=== PATIENT | male | born 1955 | race Caucasian/White ===

== ENCOUNTER 2016-08-27 07:15 | Day surgery (SDC) | payer OTHER ==
[~2016-08-27] VITALS: Ht 172.7 cm; Wt 102.1 kg
[~2016-08-27 07:15] MED LIST: ACIPHEX20 MG PO; AMLODIPINE BESY10 MG PO; AMLODIPINE BESYL5 MG PO; ASPIR-LOW81 MG PO; ASPIRIN325 MG PO; ASPIRIN81 M1; AUGMENTIN875 MG PO; BACTRIM,SEPT1 TABLET PO; BALM; BUPROBAN150 MG PO; BUPROPION XL150 MG PO; CALCITRIOL0.25 MCG PO; CARAFATE1 GM PO; CARVEDILOL12.5 MG PO; CARVEDILOL25 MG PO; CEFADROXIL500 MG PO; CEFUROXIME500 MG PO; CLARITIN10 M3 PO; CLARITIN10 MG PO; CLINDAMYCIN HC300 MG PO; CLONIDINE HCL0.2 MG PO; CLOPIDOGREL75 MG PO; COREG12.5 M1 PO; COREG25 M1 PO; DOXAZOSIN MESYLA1 MG PO; DULERA 200 MCG/13 GM IH; ERGOCALCIF50000 UNIT PO; FISH OIL CONC1 EACH PO; FLOMAX0.4 MG PO; FLOVENT DISKUS1 DIS2 IH; FUROSEMIDE20 MG PO; FUROSEMIDE40 MG PO; FUROSEMIDE80 MG PO; HUMALOG100 UNIT/1 SC; HUMALOG100 UNIT/2 SC; IMDUR30 MG PO; IMDUR60 MG PO; ISOSORBIDE MONO30 MG PO; K-DUR20 MEQ PO; KLOR-CON 1010 ME1 PO; LANTUS 10100 UNITS/ SC; LANTUS 3 M100 UNITS1 SC; LANTUS100 UNIT/1 SC; LASIX40 MG PO; LEVEMIR FL100 UNIT/1 SC; LEVEMIR FL100 UNITS/ SC; LEVOFLOXACIN500 MG PO; LISINOPRIL10 MG PO; LISINOPRIL20 MG PO; LISINOPRIL40 MG PO; LITE COAT ASPI325 M1 PO; LORATADINE10 M2 PO; LORAZEPAM0.5 MG PO; MAGNESIUM200 MG PO; MULTI VITAMIN1 EACH PO; MULTIVITAMIN1 EAC1 PO; NEXIUM40 MG; NEXIUM40 MG PO; NICOTINE PATCH1 EAC1 TD; NIFEDIPINE ER30 MG PO; NITROSTAT0.4 MG SL; NORTRIPTYLINE H75 MG PO; NOVOLIN,HU100 UNITS/ SQ; NOVOLOG MI100 UNIT/4 SC; NOVOLOG100 UNIT/1; OMEPRAZOLE40 M1 PO; ONE DAILY MULT1 EACH PO; ONE DAILY1 EAC3 PO; PANTOPRAZOLE SO40 MG PO; PAXIL20 MG PO; PEPCID20 MG PO; PLAVIX75 MG PO; PRILOSEC OTC20 MG PO; PRILOSEC40 MG PO; PROMETHAZINE-C120 ML PO; PROSCAR5 MG PO; RABEPRAZOLE SOD20 MG PO; ROCALTROL0.25 MCG PO; SENNA-TIME S T1 EACH PO; SSD25GM TP; SUCRALFATE1 GM/10 ML PO; TANZEUM30 MG/0.5 SC; TORSEMIDE100 MG PO; TOUJEO SOL300 UNIT/1 SC; TYLENOL REGULA325 MG PO; VELTASSA25.2 GM PO; VICTOZA 2-0.6 MG/0.1 SC; VITAMIN C1000 MG PO; VITAMIN D1000 INTUN; VITAMIN E100 UNIT PO; VITAMIN E400 UNI4; VITAMIN E400 UNIT PO; VYTORIN 10/11 TABLET PO; VYTORIN 10/41 TABLET; ZESTRIL,PRINIVI40 MG; ZETIA10 MG PO; ZINC SULFATE220 M1 PO; ZINC SULFATE220 MG PO; ZINC50 M2 PO; ZITHROMAX500 MG PO; ZOCOR10 MG PO; ZOFRAN4 MG PO
[2016-08-27 08:03] VITALS: BP 184/79
[2016-08-27 09:08] LABS: HEMATOCRIT 31.9 % (38.0-50.0); MCH 29.4 PG (29.0-34.0); MCV 91.9 FL (86-99); MEAN PLAT.VOLUME 10.7 uM^3 (9.0-12.4); PLATELET COUNT 217 K/uL (156-360); RBC DIS.WIDTH-CV 13.8 % (11.8-14.6); RBC DIS.WIDTH-SD 46.3 % (39-53); RED BLOOD COUNT 3.47 M/uL (4.00-5.50); WHITE BLOOD COUNT 7.8 K/uL (4.1-10.2)
[2016-08-27 09:14] LABS: METH RESISTANT S AUREUS PCR NEGATIVE (NEGATIVE)
[2016-08-27 09:16] LABS: PROBE CHECK PASS; SPECIMEN PROCESSING CONTROL PASS
[2016-08-27 09:17] LABS: CHLORIDE 109 mEq/L (99-109); POTASSIUM 4.6 mEq/L (3.7-5.4); SODIUM 143 mEq/L (136-147)
[2016-08-27 09:18] LABS: GLUCOSE 159 mg/dL (70-99)
[2016-08-27 09:20] LABS: ANION GAP 10 MEQ/L (2-14)
[2016-08-27 09:22] LABS: GFR ESTIMATE (CALCULATED) 15 mL/min/
[2016-08-27 09:23] LABS: UREA NITROGEN (BUN) 66 mg/dL (9-23)
[2016-08-27 11:12] LABS: POINT-OF-CARE METER ID UU13113675; POINT-OF-CARE USER ID 515036437
[2016-08-27 11:37] VITALS: BP 137/58
[2016-08-27 12:49] VITALS: BP 156/67
[2016-08-27 14:16] VITALS: BP 165/63
== END 2016-08-27 14:40 | disposition home or self-care (01) ==
LOC: SDC 07:15
PROVIDERS: Surgery
PROC: 0WHG43Z Insertion of Infusion Device into Peritoneal Cavity, Percutaneous Endoscopic Approach (ICD-10-PCS; principal; 2016-08-27)
DX: I12.0 Hypertensive chronic kidney disease with stage 5 chronic kidney disease or end stage renal disease (principal); E11.22 Type 2 diabetes mellitus with diabetic chronic kidney disease; N18.6 End stage renal disease; E78.5 Hyperlipidemia, unspecified; Z86.73 Personal history of transient ischemic attack (TIA), and cerebral infarction without residual deficits; Z79.01 Long term (current) use of anticoagulants; I25.2 Old myocardial infarction; M19.90 Unspecified osteoarthritis, unspecified site; Z87.891 Personal history of nicotine dependence
CPT/HCPCS: 80048; 82948; 85027; 87641; C1750; J0690; J2405; J3010

== ENCOUNTER 2016-11-19 05:09 | Day surgery (SDC) | payer OTHER ==
[~2016-11-19] VITALS: Ht 172.7 cm; Wt 104.3 kg
[~2016-11-19 05:09] MED LIST changes: +DOXYCYCLINE HY100 M3 PO
[2016-11-19 06:00] VITALS: BP 193/86
[2016-11-19 06:48] LABS: HEMATOCRIT 28.7 % (38.0-50.0); MCV 92.6 FL (86-99)
[2016-11-19 06:51] LABS: ANION GAP 12 MEQ/L (2-14); CHLORIDE 104 MEQ/L (99-109); POTASSIUM 4.6 MEQ/L (3.7-5.4); SAMPLE HEMOLYSIS CHECK 0; SAMPLE ICTERIC CHECK 0; SAMPLE LIPEMIA CHECK 0; SODIUM 140 MEQ/L (136-147)
[2016-11-19 06:57] LABS: GFR ESTIMATE (CALCULATED) 15 mL/min/; GLUCOSE 47 mg/dL (70-99); UREA NITROGEN (BUN) 86 mg/dL (9-23)
[2016-11-19 07:18] LABS: METH RESISTANT S AUREUS PCR NEGATIVE (NEGATIVE)
[2016-11-19 07:19] LABS: PROBE CHECK PASS; SPECIMEN PROCESSING CONTROL PASS
[2016-11-19 08:41] LABS: POINT-OF-CARE METER ID UU13113675
[2016-11-19 09:20] VITALS: BP 184/82
[2016-11-19 10:25] VITALS: BP 164/70
== END 2016-11-19 10:45 | disposition home or self-care (01) ==
LOC: SDC 05:09
PROVIDERS: Surgery
PROC: 0WPG03Z Removal of Infusion Device from Peritoneal Cavity, Open Approach (ICD-10-PCS; principal; 2016-11-19)
DX: I12.0 Hypertensive chronic kidney disease with stage 5 chronic kidney disease or end stage renal disease (principal); E11.22 Type 2 diabetes mellitus with diabetic chronic kidney disease; N18.6 End stage renal disease; Z87.891 Personal history of nicotine dependence; E78.00 Pure hypercholesterolemia, unspecified; Z86.73 Personal history of transient ischemic attack (TIA), and cerebral infarction without residual deficits
CPT/HCPCS: 80048; 82948; 85014; 85018; 87641; J0131; J0690; J1100; J2405; J3010

== ENCOUNTER 2016-12-12 12:48 | Day surgery (SDC) | payer OTHER ==
[2016-12-12] MEDS ORDERED: ATORVASTATIN CA40 MG PO (13:10)
[2016-12-12] MEDS ORDERED: NEPHRO-VITE,1 TABLET PO (13:11)
[2016-12-12 13:30] LABS: POINT-OF-CARE METER ID UU13113696
== END 2016-12-12 19:09 ==
LOC: CATH 12:48
PROVIDERS: Surgery
DX: T82.41XA Breakdown (mechanical) of vascular dialysis catheter, initial encounter (principal); N18.6 End stage renal disease; Z99.2 Dependence on renal dialysis
CPT/HCPCS: 82948; C1750; J0690; J1644; J2250; J3010; S0020

== ENCOUNTER 2016-12-22 13:42 | Emergency (ER) | payer OTHER ==
[~2016-12-22] VITALS: Ht 172.7 cm; Wt 97.4 kg
[~2016-12-22 13:42] MED LIST changes: +ATORVASTATIN CA40 MG PO; +NEPHRO-VITE,1 TABLET PO
[2016-12-22 14:14] LABS: HEMATOCRIT 26.7 % (38.0-50.0); MCHC 31.5 G/DL (30.0-36.0); MCV 92.1 FL (86-99); MEAN PLAT.VOLUME 10.7 uM^3 (9.0-12.4); PLATELET COUNT 206 K/uL (156-360); RBC DIS.WIDTH-CV 13.9 % (11.8-14.6); WHITE BLOOD COUNT 6.5 K/uL (4.1-10.2)
[2016-12-22 14:16] LABS: CARBON DIOXIDE (BICARBONATE) 36.8 MEQ/L (20-31)
[2016-12-22 14:22] LABS: CHLORIDE 97 mEq/L (99-109); POTASSIUM 3.4 mEq/L (3.7-5.4); SODIUM 134 mEq/L (136-147)
[2016-12-22 14:24] LABS: GLUCOSE 492 mg/dL (70-99)
[2016-12-22 14:25] LABS: ANION GAP 8 MEQ/L (2-14)
[2016-12-22 14:28] LABS: GFR ESTIMATE (CALCULATED) 18 mL/min/
[2016-12-22 14:29] LABS: UREA NITROGEN (BUN) 29 mg/dL (9-23)
[2016-12-22 16:01] LABS: POINT-OF-CARE METER ID UU14100415
[2016-12-22 16:56] LABS: POINT-OF-CARE METER ID UU13113747
[2016-12-22 17:30] VITALS: BP 155/48
[2016-12-22 17:54] LABS: POINT-OF-CARE METER ID UU14100415
== END 2016-12-22 18:06 ==
LOC: EME 13:42
PROVIDERS: Emergency Medicine
DX: E10.65 Type 1 diabetes mellitus with hyperglycemia (principal); Z89.412 Acquired absence of left great toe; E10.22 Type 1 diabetes mellitus with diabetic chronic kidney disease; I12.0 Hypertensive chronic kidney disease with stage 5 chronic kidney disease or end stage renal disease; N18.6 End stage renal disease; Z99.2 Dependence on renal dialysis; Z79.4 Long term (current) use of insulin; E78.5 Hyperlipidemia, unspecified; Z95.1 Presence of aortocoronary bypass graft; Z79.02 Long term (current) use of antithrombotics/antiplatelets; H54.8 Legal blindness, as defined in USA; Z87.891 Personal history of nicotine dependence
CPT/HCPCS: 80048; 82010; 82803; 82948; 85027; 99281; 99285

== ENCOUNTER 2017-01-13 11:50 | Emergency (ER) | payer OTHER ==
[~2017-01-13] VITALS: Ht 172.7 cm; Wt 100.0 kg
[2017-01-13 13:07] LABS: HEMATOCRIT 29.7 % (38.0-50.0); MCH 29.3 PG (29.0-34.0); MCV 94.6 FL (86-99); MEAN PLAT.VOLUME 9.9 uM^3 (9.0-12.4); PLATELET COUNT 341 K/uL (156-360); RBC DIS.WIDTH-CV 15.8 % (11.8-14.6); RBC DIS.WIDTH-SD 53.9 % (39-53); RED BLOOD COUNT 3.14 M/uL (4.00-5.50)
[2017-01-13 13:16] LABS: CHLORIDE 104 mEq/L (99-109); POTASSIUM 4.9 mEq/L (3.7-5.4); SODIUM 141 mEq/L (136-147)
[2017-01-13 13:19] LABS: GLUCOSE 245 mg/dL (70-99)
[2017-01-13 13:20] LABS: ANION GAP 11 MEQ/L (2-14)
[2017-01-13 13:21] LABS: TOTAL BILIRUBIN 0.3 mg/dL (0.0-1.0)
[2017-01-13 13:22] LABS: ALKALINE PHOSPHATASE 120 IU/L (3-129); GFR ESTIMATE (CALCULATED) 16 mL/min/
[2017-01-13 13:23] LABS: UREA NITROGEN (BUN) 56 mg/dL (9-23)
[2017-01-13 13:26] LABS: LIPASE 243 U/L (1.0-51.0)
[2017-01-13 16:30] VITALS: BP 163/72
== END 2017-01-13 16:30 | disposition home or self-care (01) ==
LOC: EME 11:50
DX: K59.00 Constipation, unspecified (principal); R11.2 Nausea with vomiting, unspecified; I12.0 Hypertensive chronic kidney disease with stage 5 chronic kidney disease or end stage renal disease; E11.22 Type 2 diabetes mellitus with diabetic chronic kidney disease; N18.6 End stage renal disease; Z79.4 Long term (current) use of insulin; Z99.2 Dependence on renal dialysis; E78.5 Hyperlipidemia, unspecified; Z95.1 Presence of aortocoronary bypass graft; Z79.02 Long term (current) use of antithrombotics/antiplatelets; Z87.891 Personal history of nicotine dependence
CPT/HCPCS: 74176; 80053; 81003; 83690; 85027; 99281; 99284

== ENCOUNTER 2017-02-04 09:02 | Day surgery (SDC) | payer OTHER ==
[~2017-02-04] VITALS: Ht 172.7 cm; Wt 103.0 kg
[~2017-02-04 09:02] MED LIST changes: +ACIDOPHILUS1 EAC4 PO; +LIPITOR40 MG PO; +PROTONIX40 MG PO; +RENVELA800 MG PO; +STOOL SOFTENER1 EAC2 PO; +TRAZODONE HCL50 MG PO; +VITAMIN D400 UNIT PO
[2017-02-04 09:29] VITALS: BP 163/77
[2017-02-04 09:43] LABS: HEMATOCRIT 35.5 % (38.0-50.0); MCH 30.4 PG (29.0-34.0); MCHC 31.8 G/DL (30.0-36.0); MCV 95.4 FL (86-99); RBC DIS.WIDTH-CV 16.6 % (11.8-14.6); RBC DIS.WIDTH-SD 57.4 % (39-53); RED BLOOD COUNT 3.72 M/uL (4.00-5.50)
[2017-02-04 10:06] LABS: PLATELET COUNT UNABLE TO REPORT K/uL (156-360)
[2017-02-04 10:20] LABS: ANION GAP 12 MEQ/L (2-14); CHLORIDE 102 MEQ/L (99-109); GFR ESTIMATE (CALCULATED) 23 mL/min/; GLUCOSE 99 mg/dL (70-99); POTASSIUM 4.7 MEQ/L (3.7-5.4); SAMPLE HEMOLYSIS CHECK 0; SAMPLE ICTERIC CHECK 0; SAMPLE LIPEMIA CHECK 0; SODIUM 143 MEQ/L (136-147); UREA NITROGEN (BUN) 39 mg/dL (9-23)
[2017-02-04 10:44] LABS: METH RESISTANT S AUREUS PCR NEGATIVE (NEGATIVE)
[2017-02-04 10:45] LABS: PROBE CHECK PASS; SPECIMEN PROCESSING CONTROL PASS
[2017-02-04 13:45] LABS: POINT-OF-CARE METER ID UU13113675; POINT-OF-CARE USER ID 515036437
[2017-02-04 14:40] VITALS: BP 145/66
[2017-02-04 16:34] VITALS: BP 145/66
[2017-02-04 18:02] VITALS: BP 167/73
== END 2017-02-04 18:00 | disposition home or self-care (01) ==
LOC: SDC
PROVIDERS: Surgery
DX: E11.22 Type 2 diabetes mellitus with diabetic chronic kidney disease (principal); N18.6 End stage renal disease; Z99.2 Dependence on renal dialysis; E78.00 Pure hypercholesterolemia, unspecified; Z86.73 Personal history of transient ischemic attack (TIA), and cerebral infarction without residual deficits
CPT/HCPCS: 80048; 82948; 85027; 87641; J0690; J1170; J1644; J2250; J2720; J3010

== ENCOUNTER 2017-04-01 08:32 | Day surgery (SDC) | payer OTHER ==
[~2017-04-01] VITALS: Ht 172.7 cm; Wt 104.8 kg
[~2017-04-01 08:32] MED LIST changes: +NOVOLOG PE100 UNITS/ SC; +RENA-VITE RX T1 EACH PO
[2017-04-01] MEDS ORDERED: ZINC SULFATE220 MG PO (08:49)
[2017-04-01 09:14] LABS: POINT-OF-CARE METER ID UU13113696
[2017-04-01 10:19] LABS: METH RESISTANT S AUREUS PCR NEGATIVE (NEGATIVE)
[2017-04-01 10:21] LABS: PROBE CHECK PASS; SPECIMEN PROCESSING CONTROL PASS
== END 2017-04-01 10:58 | disposition home or self-care (01) ==
LOC: CATH 08:32
PROVIDERS: Surgery
DX: T82.858A Stenosis of other vascular prosthetic devices, implants and grafts, initial encounter (principal); I12.9 Hypertensive chronic kidney disease with stage 1 through stage 4 chronic kidney disease, or unspecified chronic kidney disease; E11.22 Type 2 diabetes mellitus with diabetic chronic kidney disease; N18.6 End stage renal disease; Z99.2 Dependence on renal dialysis; I25.10 Atherosclerotic heart disease of native coronary artery without angina pectoris; Z86.73 Personal history of transient ischemic attack (TIA), and cerebral infarction without residual deficits; E78.00 Pure hypercholesterolemia, unspecified; M19.90 Unspecified osteoarthritis, unspecified site; Z87.891 Personal history of nicotine dependence; Z82.3 Family history of stroke; Z82.49 Family history of ischemic heart disease and other diseases of the circulatory system; Z83.3 Family history of diabetes mellitus; Z79.4 Long term (current) use of insulin
CPT/HCPCS: 82948; 87641; C1725; C1769; C1894; J1644; J2250; J3010

== ENCOUNTER → 2017-05-06 | Outpatient (CLI) | payer OTHER | END | disposition home or self-care (01) | LOC: AMB 08:46 | PROC: 02PYX3Z Removal of Infusion Device from Great Vessel, External Approach (ICD-10-PCS; principal; 2017-05-06) | DX: Z45.2 Encounter for adjustment and management of vascular access device (principal); N18.6 End stage renal disease; Z99.2 Dependence on renal dialysis ==

== ENCOUNTER → 2017-06-29 | Outpatient (CLI) | payer MEDICARE, OTHER ==
[~2017-06-29] MED LIST changes: +TRESIBA FL100 UNIT/1 SC
== END | disposition home or self-care (01) ==
LOC: CDC 12:04
DX: Z01.810 Encounter for preprocedural cardiovascular examination (principal); R94.31 Abnormal electrocardiogram [ECG] [EKG]
CPT/HCPCS: 93000

== ENCOUNTER 2017-10-19 07:09 | Day surgery (SDC) | payer OTHER ==
[~2017-10-19] VITALS: Ht 172.7 cm; Wt 108.0 kg
[2017-10-19] MEDS ORDERED: PROTONIX40 MG PO (07:44)
[2017-10-19] MEDS ORDERED: VITAMIN D-3 401 EACH PO (07:46)
== END 2017-10-19 09:35 | disposition home or self-care (01) ==
LOC: CATH 07:09
PROVIDERS: Surgery
DX: T82.858A Stenosis of other vascular prosthetic devices, implants and grafts, initial encounter (principal); E11.22 Type 2 diabetes mellitus with diabetic chronic kidney disease; N18.6 End stage renal disease; Z99.2 Dependence on renal dialysis; E78.5 Hyperlipidemia, unspecified; Z86.73 Personal history of transient ischemic attack (TIA), and cerebral infarction without residual deficits; M19.90 Unspecified osteoarthritis, unspecified site; Y83.2 Surgical operation with anastomosis, bypass or graft as the cause of abnormal reaction of the patient, or of later complication, without mention of misadventure at the time of the procedure
CPT/HCPCS: 82948; 87641; C1725; C1769; C1874; C1894; J1644; J2250; J3010